=== PATIENT | female | born 2000 | race Caucasian/White ===

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

== ENCOUNTER 2024-12-21 14:24 | Outpatient (CLI) | payer OTHER, SELFPAY ==
[2024-12-21 17:37] LABS: Hematocrit 36.9 % (37.0-47.0); Hemoglobin 12.4 g/dL (12.0-15.0); Immature Granulocyte Percent A 0.3 % (0-0.5); Lymphocytes Absolute Auto 2.02 K/mm3 (0.9-3.2); Mean Corpuscular HGB Conc 33.6 g/dl (32-36); Mean Corpuscular Hemoglobin 29.4 pg (26-34); Mean Corpuscular Volume 87.4 fl (80-100); Nucleated Red Blood Cells Absolute Auto 0.000 K/mm3 (0.0-0.012); Nucleated Red Blood Cells Perc 0.0 % (0.0-0.2); Platelet Count Result 261 k/mm3 (150-375); Red Blood Count 4.22 M/mm3 (4.2-5.4); White Blood Count 9.9 K/mm3 (4.5-10.0)
[2024-12-21 18:10] LABS: Hepatitis B Surface Antigen Negative (Negative)
[2024-12-21 18:17] LABS: HIV 1/2 Ab P24 Ag Result Negative (Negative)
[2024-12-21 18:42] LABS: Beta HCG Quantitative 38711.00 mIU/ML
[2024-12-21 20:22] LABS: Syphilis IgG/IgM Antibody Non-Reactive (Nonreactive)
[2024-12-22 15:09] LABS: Varicella-Zoster Ab, IgG Reactive (Non Reactive); Varicella-Zoster Ab, IgM <0.91 index (0.00-0.90)
[2024-12-23 10:08] LABS: Cytomegalovirus (CMV) Ab, IgG 3.20 U/mL (0.00-0.59); Cytomegalovirus (CMV) Ab, IgM <30.0 AU/mL (0.0-29.9)
[2024-12-24 13:08] LABS: Parvovirus B19, IgG 0.2 index (0.0-0.8); Parvovirus B19, IgM 0.2 index (0.0-0.8)
== END 2024-12-21 14:25 | disposition home or self-care (01) ==
LOC: ANHGOSHLAB 14:25
PROVIDERS: PCP Pediatrics; Visit Provider Student in an Organized Health Care Education/Training Program
DX: N91.2 Amenorrhea, unspecified (principal)
CPT/HCPCS: 36415; 84702; 85025; 86593; 86644; 86645; 86703; 86747; 86762; 86787; 86850; 86900; 86901; 87086; 87340; G0432

== ENCOUNTER 2025-03-26 14:53 | Outpatient (CLI) | payer OTHER, MEDICAID, SELFPAY ==
[2025-03-26 18:28] LABS: Hematocrit 38.0 % (37.0-47.0); Hemoglobin 12.8 g/dL (12.0-15.0); Immature Granulocyte Percent A 0.5 % (0-0.5); Lymphocytes Absolute Auto 1.42 K/mm3 (0.9-3.2); Mean Corpuscular HGB Conc 33.7 g/dl (32-36); Mean Corpuscular Hemoglobin 29.3 pg (26-34); Mean Corpuscular Volume 87.0 fl (80-100); Nucleated Red Blood Cells Absolute Auto 0.000 K/mm3 (0.0-0.012); Nucleated Red Blood Cells Perc 0.0 % (0.0-0.2); Platelet Count Result 246 k/mm3 (150-375); Red Blood Count 4.37 M/mm3 (4.2-5.4); White Blood Count 10.4 K/mm3 (4.5-10.0)
[2025-03-26 18:35] LABS: Glucose 1 Hour PP 50gm Dose 162 mg/dL
[2025-03-26 19:10] LABS: Syphilis IgG/IgM Antibody Non-Reactive (Nonreactive)
[2025-03-26 19:17] LABS: HIV 1/2 Ab P24 Ag Result Negative (Negative)
== END 2025-03-26 14:54 | disposition home or self-care (01) ==
LOC: ANHGOSHLAB 14:55
PROVIDERS: PCP Pediatrics; Visit Provider Obstetrics & Gynecology
DX: Z34.90 Encounter for supervision of normal pregnancy, unspecified, unspecified trimester (principal)
CPT/HCPCS: 36415; 82947; 85025; 86593; 86703; G0432

== ENCOUNTER 2025-04-12 12:38 | Outpatient (CLI) | payer OTHER, MEDICAID, SELFPAY ==
[2025-04-12 19:25] LABS: Glucose 2 Hour Gest 133 mg/dL (>/= 155)
[2025-04-12 19:31] LABS: Glucose 3 Hour Gest 115 mg/dL (>/=140)
[2025-04-12 19:31] LABS: Glucose 1 Hour Gest 150 mg/dL (>/=180)
== END 2025-04-12 12:39 | disposition home or self-care (01) ==
LOC: ANHGOSHLAB 12:39
PROVIDERS: PCP Pediatrics; Visit Provider Student in an Organized Health Care Education/Training Program
DX: Z34.90 Encounter for supervision of normal pregnancy, unspecified, unspecified trimester (principal); Z3A.00 Weeks of gestation of pregnancy not specified
CPT/HCPCS: 36415; 82948; 82951; 82952